=== PATIENT | female | born 1965 | race Caucasian/White ===

== ENCOUNTER 2017-04-12 05:41 | Day surgery (SDC) | payer OTHER ==
[~2017-04-12] VITALS: Ht 160 cm; Wt 82.0 kg
[2017-04-12] MEDS ORDERED: ROPINIROLE (06:44)
[2017-04-12] MEDS ORDERED: CHOL MED (06:44)
[2017-04-12] MEDS ORDERED: LEVOTHYROXINE (06:44)
[2017-04-12] MEDS ORDERED: OMEPRAZOLE (06:44)
[2017-04-12] MEDS ORDERED: IBUPROFEN (06:44)
[2017-04-12] MEDS ORDERED: CALCIUM + D (06:44)
--- NOTE | 2017-04-12 07:39 | OPPN ---
Date/Time of Note Date/Time of Note DATE: 04/12/17 TIME: 07:37 Operative Report Preoperative Diagnosis Abdominal pain Chronic heartburn Postoperative Diagnosis Gastroesophageal reflux disease Gastritis with erosions Operation/Procedure Performed Esophagogastroduodenoscopy and biopsy Surgeon see signature line welder assistant None Anesthesia: moderate sedation Estimated blood loss: none Transfusion Required none Specimen Gastric mucosal biopsy Grafts/Implants none Complications none JOJO JARAMILLO MD Apr 12, 2017 07:39
[2017-04-12] MEDS ORDERED: MIDAZOLAM 1 MG/ML 2 ML INJ ONE (07:40)
[2017-04-12] MEDS ORDERED: FENTAnyl 50 MCG/ML VIAL ONE (07:40)
--- NOTE | 2017-04-12 10:02 | GILP ---
DATE OF PROCEDURE: 04/12/2017 NAME OF PROCEDURES: Esophagogastroduodenoscopy and biopsy. SURGEON: Jojo Aldrich MD PREOPERATIVE DIAGNOSES: 1. Abdominal pain. 2. Chronic heartburn. POSTOPERATIVE DIAGNOSES: 1. Gastroesophageal reflux disease. 2. Gastritis with erosions. 3. Gastric mucosal biopsies were taken for Helicobacter pylori test. INDICATION FOR THE PROCEDURE: Ms. Amada Rodriguez is a 51-year-old female patient who had upper abdomin al pain and chronic heartburn, not responding to therapy. The patient was scheduled for endoscopic examination for further evaluation. The procedure and possible complications were well explained to the patient. The patient understood and consented to the procedure. DESCRIPTION OF PROCEDURE: Under the influence of fentanyl and Versed, the gastroscope was carefully introduced into the esophagus and under direct vision it was advanced to the stomach and through th e pylorus into the duodenal bulb and descending duodenum. FINDINGS: ESOPHAGUS: The patient had gastroesophageal reflux disease. STOMACH: She had gastritis with erosions. Gastric mucosal biopsies were taken for H. pylori test. Duodenum was normal. She tolerated the procedure very well and there was no complication from the procedure. At the end of the procedure, she was awake with stable vital signs and she was discharged home to the care of h family. IMPRESSION: Please see postoperative diagnoses. PLAN: 1. Continue omeprazole. 2. Add Zantac 300 mg p.o. at bedtime. 3. Await Helicobacter pylori test report. Dictated By: JOJO NOEL/NACHO Conf#: [id number] DID#: [id number]
== END 2017-04-12 10:44 | disposition home or self-care (01) ==
LOC: GIL 05:41
PROVIDERS: ATTEND Internal Medicine Gastroenterology
DX: K21.9 Gastro-esophageal reflux disease without esophagitis (principal); K29.60 Other gastritis without bleeding
CPT/HCPCS: 43239; 87081; J2250; J3010; Z7610